=== PATIENT | female | born 1960 | race Caucasian/White ===

== ENCOUNTER 2020-01-02 07:38 | Outpatient (CLI) | payer BC, OTHER, SELFPAY ==
--- NOTE | ~2020-01-02 | DEXA_ITS ---
BMD(1) Young-Adult(2) Age-Matched(3) Region (g/cm2) T-score Z-score WHO Classification L1 1.266 1.0 2.0 Normal L2 1.292 0.7 1.7 Normal L3 1.408 1.5 2.5 Normal L4 1.480 2.0 3.0 Normal L1-L4 1.368 1.4 2.4 Normal Trend: L1-L4 Change vs Change vs Measured Age BMD(1) Baseline Previous Date (years) (g/cm2) (%) (%) 01/02/2020 [age] 1.368 -4.5* -4.5* 12/25/2015 [age] 1.432 baseline - * - Indicates significant change based on 95% confidence interval. 1 - Statistically 68% of repeat scans fall within 1SD (+- 0.010 g/cm2 for AP Spine L1-L4) 2 - [place] (Combined NHANES (ages 20-30) / Tryouts (ages 20-40)) AP Spine Reference Population (v112) 3 - Matched for Age, Weight (females 25-100 kg), Ethnic 11 - World Health Organization - Definition of Osteoporosis and Osteopenia for Women: Normal = T-score at or above -1.0 SD; Osteopenia = T-score between -1.0 and -2.5 SD; Osteoporosis = T-score at or below -2.5 SD; (WHO definitions only apply when a young healthy Women reference database is used to determine T-scores.) Printed: 01/02/2020 8:12:00 AM (13.60)76:3.00:50.00:12.0 0.00:9.90 0.60x1.05 26.3:%Fat=45.3% 0.00:0.00 0.00:0.00 Filename: [id number] Scan Mode: Standard;[place] 37.0 [employer] [id number] BMD(1) Young-Adult(2,7) Age-Matched(3) Region (g/cm2) T-score Z-score WHO Classification Neck Left 0.987 -0.4 0.7 Normal Right 0.968 -0.5 0.6 Normal Mean 0.978 -0.4 0.6 Normal Difference 0.018 -0.1 -0.1 - Total Left 1.050 0.3 1.1 Normal Right 1.028 0.2 0.9 Normal Mean 1.039 0.2 1.0 Normal Difference 0.022 -0.2 -0.2 - Hip [place] Length Comparison (mm) (Right = 106.8 mm) (Mean = 106.7 mm) (Left = 108.7 mm) Trend: Total Mean Change vs Change vs Measured Age BMD(1) Baseline Previous Date (years) (g/cm2) (%) (%) 01/02/2020 59.4 1.039 -3.4* -3.4* 05/04/2012 51.7 1.076 baseline - * - Indicates significant change based on 95% confidence interval. 1 - Statistically 68% of repeat scans fall within 1SD (+- 0.010 g/cm2 for DualFemur Total) 2 - [place] (Combined NHANES (ages 20-30) / Tryouts (ages 20-40)) Femur Reference Population (v112) 3 - Matched for Age, Weight (females 25-100 kg), Ethnic 7 - DualFemur Total T-score difference is 0.2. Asymmetry is None. 11 - World Health Organization - Definition of Osteoporosis and Osteopenia for Women: Normal = T-score at or above -1.0 SD; Osteopenia = T-score between -1.0 and -2.5 SD; Osteoporosis = T-score at or below -2.5 SD; (WHO definitions only apply when a young healthy Women reference database is used to determine T-scores.) Printed: 01/02/2020 8:12:00 AM (13.60); Filename: [id number]; Right Femur; 19.0:%Fat=35.7%; Neck Angle (deg)= 56; Scan Mode: Standard 37.0 uGy; Left Femur; 18.6:%Fat=36.9%; Neck Angle (deg)= 62; Scan Mode: Standard 37.0 uGy [employer] [id number] Dear Alan Redd, Your patient Daisy Grant completed a BMD test on 01/02/2020 using the [employer] DXA System (analysis version: 13.60) manufactured by [employer]. The following summarizes the results of our evaluation. PATIENT BIOGRAPHICAL: Name: Daisy Grant
--- NOTE | ~2020-01-02 | CT_ITS ---
EXAMINATION: CT lung screening EXAM DATE: 01/02/2020 07:59 INDICATION: Personal history of nicotine dependence. TECHNIQUE: Spiral low dose CT of the chest without contrast. Axial, coronal and sagittal images were reviewed. The dose-length product (DLP) for this examination was 110.91 mGy-cm. The exposure was t ailored according to patient size (auto mA exposure control), and iterative reconstruction (ASIR) was used as additional dose reduction technique. There is no prior study for comparison. FINDINGS: There is 5 mm right apical noncalcified nodule. Several other smaller right lung noncalcif ied nodules also indicated. Pleural-based left lower lobe 5 mm nodule in the lateral sulcus. Nodules are likely postinfectious. Mild emphysema and hyperinflation. Tracheobronchial tree is patent. Ther e is no mediastinal, hilar or axillary lymphadenopathy. There are no pleural or pericardial effusio ns. There is no pneumothorax. Heart normal in size. No evidence of coronary arterial calcificat ion. There is small sliding gastroesophageal hiatal hernia. There is thoracic spondylosis without os teoblastic or osteolytic lesions identified. There are cholecystectomy clips. IMPRESSION: Lung-RADS category 2, benign appearance or behavior (<1% chance of malignancy); recommend continued LDCT screening in 1 year. Reviewed, dictated and finalized at location B.
--- NOTE | ~2020-01-02 | MM_ITS ---
EXAMINATION: MM screening anjali BI w brittany HISTORY: Screening mammogram TECHNIQUE: Craniocaudal and mediolateral oblique 3-D tomosynthesis images were obtained and synthetic 2-D images were generated. CAD analysis was submitted and interpreted. COMPARISON: No prior mammogram is available for comparison at this institution. BREAST PARENCHYMAL COMPOSITION: There are scattered areas of fibroglandular density. FINDINGS: There is asymmetry in the mid medial left breast. Diagnostic left mammogram is recommended, with ultrasound if required. Otherwise there is no evidence of suspicious mass, calcification, or architectural distortion to sugg est malignancy in either breast. IMPRESSION: 1. Left breast mammographic asymmetry 2. Diagnostic left mammogram is recommended, with ultrasound if required. BI-RADS Category 0: Incomplete: Needs additional imaging evaluation. Reviewed, dictated and finalized at location A.
== END 2020-01-02 07:39 | disposition home or self-care (01) ==
LOC: CHSIMG 07:41
PROVIDERS: PCP Internal Medicine; Visit Provider Internal Medicine
DX: Z12.2 Encounter for screening for malignant neoplasm of respiratory organs (principal); Z87.891 Personal history of nicotine dependence; Z12.31 Encounter for screening mammogram for malignant neoplasm of breast; M81.0 Age-related osteoporosis without current pathological fracture
CPT/HCPCS: 77063; 77067; 77080; G0297

== ENCOUNTER 2020-01-09 08:56 | Outpatient (CLI) | payer BC, OTHER, SELFPAY ==
--- NOTE | ~2020-01-09 | MMUS_ITS ---
EXAMINATION: MM diagnostic anjali LT w brittany, US breast LT limited HISTORY: Left breast asymmetry on screening mammogram TECHNIQUE: Additional 3-D tomosynthesis images of the left breast were performed and synthetic 2-D im ages were generated. CAD analysis was submitted and interpreted. High resolution limited left breast ultrasound was performed. COMPARISON: 01/02/2020, 12/08/2010, 12/15/2009, 12/02/2009, 05/28/2008 FINDINGS: MAMMOGRAPHIC FINDINGS: The left breast asymmetry on the craniocaudal view demonstrates an appearance similar to prior mammog livier with spot compression. There is no suspicious mass, calcification, or architectural distortion. ULTRASOUND: There is no evidence of focal abnormal solid or cystic lesion in the vicinity of the mammographic fin ding in question. IMPRESSION: 1. No mammographic or sonographic evidence of malignancy. 2. Recommend routine screening mammography in one year. BI-RADS Category 2: Benign finding(s). Reviewed, dictated and finalized at location A. IMPRESSION: 1. No mammographic or sonographic evidence of malignancy. 2. Recommend routine screening mammography in one year. BI-RADS Category 2: Benign finding(s).
== END 2020-01-09 08:57 | disposition home or self-care (01) ==
LOC: CHSIMG 08:59
PROVIDERS: PCP Internal Medicine; Visit Provider Internal Medicine
DX: R92.8 Other abnormal and inconclusive findings on diagnostic imaging of breast (principal)
CPT/HCPCS: 76642; 77061; 77065; G0279

== ENCOUNTER 2022-12-27 08:33 | Outpatient (CLI) | payer BC, SELFPAY ==
--- NOTE | ~2022-12-27 | CT_ITS ---
CT Scan of the Chest without Contrast: Clinical Indication: Lung cancer screening, personal history of nicotine dependence Technique: Contiguous sections were acquired throughout the chest without intravenous contrast. Dose reduction technique was used on this scan by utilizing automated exposure control and iterative recon struction technique. The dose-length product (DLP) was 103.21 mGy-cm. COMPARISON: 01/02/2020 Findings: There is no evidence of any significant mediastinal, hilar or axillary lymphadenopathy. The mediastin al soft tissues appear normal. There is no evidence of pleural or pericardial effusion. Stable right apical nodule, likely scarring. Stable pleural-based nodule the right lower lobe. Stable fissural nodule along the right major fissure. Images through the upper abdomen reveal no abnormalities. Impression: Lung RADS 2: Benign appearance. 12 month follow-up screening CT advised. Reviewed, dictated and finalized at [facility]. Impression: Lung RADS 2: Benign appearance. 12 month follow-up screening CT advised.
--- NOTE | ~2022-12-27 | DEXA_ITS ---
Bone Density Report Name: ZION LARSON Age: 62 Sex: Female Ethnicity: White Date of : 1960 Indication: postmenopausal; screening for osteoporosis; height loss; asthma or emphysema; Referring Provider: Alan Redd Study: Bone densitometry was performed. Exam Date: December 27, 2022 Accession number: [id number] Bone Density: Region BMD T-score Z-score Classification AP Spine(L1, L2, L3) 1.122 0.9 2.6 Normal Femoral Neck (Left) 0.789 -0.5 0.9 Normal Total Hip (Left) 0.974 0.3 1.5 Normal Femoral Neck (Right) 0.788 -0.5 0.9 Normal Total Hip (Right) 0.955 0.1 1.3 Normal Femoral Neck Mean 0.788 -0.5 0.9 Normal Total Hip Mean 0.964 0.2 1.4 Normal World Health Organization criteria for BMD impression classify patients as: Normal (T-score at or above -1.0), Osteopenia (T-score between -1.0 and -2.5), or Osteoporosis (T-score at or below -2.5). 10-year Fracture Risk: FRAX not reported because: All T-scores for Spine Total, Hip Total, Femoral Neck at or above -1.0 Clinical Information Provided by Patient: Has the following medical conditions: Asthma or Emphysema Patient maximum height was 65 Menopause Age: 38 No regular weight bearing exercise Does not regularly consume dairy products Drinks caffeinated beverages Onset of menses at age 14 Number of children 2 Impression: The patient has normal bone mass. Discussion: BONE DENSITY IS ABOVE THE MINIMUM DESIRABLE LEVEL AT ALL SKELETAL SITES TESTED. This patient?s bone mineral density is above the minimum desirable level (T-score -1.0 or better) at all sites measured. The patient should follow a healthful lifestyle (good nutrition with adequate calcium and vitamin D, and appropriate weight-bearing exercise). Follow-Up: Consider repeating this study in 5 years or sooner if there is some new clinical indication. Reported by: Dr. Jayy Whaley on 12/27/2022 9:03:00 AM. Reviewed, dictated and finalized at location [facility]
== END 2022-12-27 08:34 | disposition home or self-care (01) ==
LOC: CHSIMG 08:36
PROVIDERS: PCP Internal Medicine; Visit Provider Internal Medicine
DX: Z12.2 Encounter for screening for malignant neoplasm of respiratory organs (principal); Z87.891 Personal history of nicotine dependence; Z78.0 Asymptomatic menopausal state
CPT/HCPCS: 71271; 77080

== ENCOUNTER 2023-10-04 15:49 | Emergency (ER) | payer BC, SELFPAY ==
[2023-10-04 15:56] VITALS: BP 114/70; PULSE 81; RESP 16; TEMP 36.8; O2SAT 97
--- NOTE | 2023-10-04 16:08 | ED.WOUNDLAC ---
HPI - Wound/Laceration General Chief Complaint: Wound/Laceration Stated Complaint: Bee Sting Time Seen by Provider: 10/04/23 16:08 Source: patient, RN notes reviewed and old records reviewed Mode of arrival: ambulatory Limitations: no limitations History of Present Illness HPI narrative: 63-year-old female to [facility] for complaint of wasps sting to right lateral trunk Two nights ago. Patient states increasing redness, warmth, swelling and pain to area. Patient has attempted to treat at home with Benadryl. Patient endorses similar prior reaction to wasps sting. Patient denies shortness of breath, cough, difficulty swallowing, dizziness, headache, joint pain, myalgias. Patient able to tolerate fluids by mouth. Respirations even and nonlabored. Patient in no acute distress. Related Data Home Medications Medication Instructions Recorded Confirmed albuterol sulfate 90 mcg/actuation 1 inh inhalation Q4H 05/18/22 06/15/22 aerosol inhaler montelukast 10 mg tablet 10 mg PO DAILY 05/18/22 06/15/22 Allergies Allergy/AdvReac Type Severity Reaction Status Date / Time No Known Allergies Allergy Verified 10/04/23 15:57 Review of Systems Review of Systems: All systems reviewed & are unremarkable except as noted in HPI and below Constitutional: Constitutional: Reports no additional constitutional complaints Eyes: Eyes: Reports no additional eye complaints ENT: Reports system reviewed and no additional complaints, except as documented Cardiovascular: Cardiovascular: Reports no additional cardiovascular complaints, Denies chest pain and Denies dyspnea Respiratory: Respiratory: Reports no additional respiratory complaints, Denies cough and Denies dyspnea Musculoskeletal: Musculoskeletal: Reports no additional musculoskeletal complaints Integumentary/Breasts: Skin/Breast: Reports as per HPI, Reports pruritus, Reports erythema, Reports skin pain and Reports skin swelling Comments: Right lateral trunk; patient endorses wasp sting Neurologic: Reports system reviewed and no additional complaints, except as documented Psychiatric: Psychiatric: Reports no additional psychiatric complaints PMFSH Past Medical History Medical History Asthma COPD (chronic obstructive pulmonary disease) GERD (gastroesophageal reflux disease) Surgical History Surgical History H/O tubal ligation History of cholecystectomy S/P ovarian cystectomy Family History Family History Other Heart disease Social History Social History Smoking status: Never smoker Smoking end date: 04/10/11 Alcohol intake: current Substance use: never Substance use type: does not use Lack of Transportation: No Lack of Food: Never True Current Housing: I Have Housing Concerned About Future Housing: No Difficulty Paying Gas/Electric Bills: No Difficulty Paying for Meds: No Currently Unemployed: No Education: Trade/Vocational Certificate Difficulty w/ Childcare or Family Care: No Comments At the time of my signature, I reviewed and agree with the nursing past medical, surgical, social, and family history. There is no relevant family history pertinent to the patient complaint. Exam Const: General: cooperative, healthy appearing, no acute distress, alert, uncomfortable and well nourished Nutritional Appearance: well nourished Orientation/consciousness: patient oriented x3 Limitations: no limitations HENMT: Head: normal to inspection Ears: external ears normal Face/Nose/Sinus: Normal external nose present, Normal nares present, normal facial exam, No erythema and No edema Face and sinus: normal facial exam, no erythema and no edema Mouth: Yes Normal oral and palatal mucosa presen
[2023-10-04] MEDS: methylPREDNISolone ACETATE 40 MG/ML VIAL IM (17:00)
== END 2023-10-04 17:15 | disposition home or self-care (01) ==
PROVIDERS: Emergency Provider Nurse Practitioner Family; PCP Internal Medicine
DX: J44.9 Chronic obstructive pulmonary disease, unspecified (principal); K21.9 Gastro-esophageal reflux disease without esophagitis
CPT/HCPCS: 96372; 99213; G0463; J1010

== ENCOUNTER 2023-10-13 14:39 | Outpatient (CLI) | payer BC, SELFPAY ==
--- NOTE | ~2023-10-13 | CT_ITS ---
EXAMINATION: CT abdomen pelvis w con DATE: 10/13/2023 15:39 INDICATION: Right lower quadrant abdominal pain. Nausea. TECHNIQUE: Computed tomography (CT) of the abdomen and pelvis was performed with 100 mL Omnipaque 350 intravenous contrast. Automated exposure control and iterative reconstruction technique were employe d. The dose-length product was 514.01 mGy-cm. COMPARISON: Chest CT 12/27/2022 FINDINGS: The visualized portions of the lung bases demonstrate minimal atelectasis. There is a stabl e 6 mm nodule in left lower lobe, likely benign. No pleural effusion. The heart size is normal. No pe ricardial effusion. There is a small sliding hiatal hernia. The liver is normal. There are changes of cholecystectomy. The spleen, pancreas, adrenal glands, and kidneys are normal. There are no dilated loops of bowel. There is diverticulosis of the colon without evidence of diverticulitis. The appendix is normal. There are no pathologically enlarged lymph nodes. There is no free intraperitoneal fluid. There is severe lumbar spondylosis and moderate thoracic spondylosis. IMPRESSION: 1. Small sliding hiatal hernia. Reviewed, dictated and finalized at location A.
[2023-10-13 14:55] LABS: Hematocrit 46.3 % (35.0-42.0); Hemoglobin 14.9 g/dL (11.7-13.8); Mean Corpuscular HGB Conc 32.2 g/dL (32-36); Mean Corpuscular Hemoglobin 32.2 pg (27.0-31.0); Mean Platelet Volume 10.8 fl (9.2-11.8); Platelet Count Result 290 K/mm3 (150-420); Red Blood Count 4.63 M/mm3 (4.20-5.40); Red Cell Distribution Width 12.7 % (11.6-14.4); White Blood Count 9.5 K/mm3 (4.8-10.8)
[2023-10-13 15:09] LABS: Alanine Aminotransferase 44 U/L (14-59); Albumin Level 3.7 g/dL (3.4-5.0); Alkaline Phosphatase 149 U/L (46-116); Amylase 64 U/L (25-115); Anion Gap 9 mmol/L (4-12); Aspartate Amino Transferase 29 U/L (15-37); Bilirubin,Total 0.7 mg/dL (0.00-1.00); Blood Urea Nitrogen 18 mg/dL (7-18); Calcium 9.2 mg/dL (8.5-10.1); Carbon Dioxide 31 mmol/L (21-32); Chloride 104 mmol/L (98-108); Estimated Glomerular Filt Rate 48; Glucose 90 mg/dL (70-99); Lipase 45 U/L (16-77); Osmolality Calculated 299 mOsm/kg (285-295); Potassium 3.9 mmol/L (3.5-5.1); Sodium 144 mmol/L (136-145); Total Protein 7.9 g/dL (6.4-8.2)
[2023-10-13 15:13] LABS: Appearance Urine Clear (Clear); Bilirubin Urine Negative (Negative); Blood Urine Negative (Negative); Color Urine Yellow (Yellow); Glucose Urine UA Negative (Negative); Ketones Urine Negative (Negative); Leukocyte Esterase Ur Trace (Negative); Nitrate Urine Negative (Negative); Protein Urine Negative (Negative); Specific Grav Ur 1.025 (1.010-1.020); Urobilinogen Urine 0.2 mg/dL (0.2-1.0)
[2023-10-13 15:27] LABS: Add Urine Microscopic? YES; Bacteria Urine None seen /hpf; RBC Urine None seen /hpf (0-2); Squamous Epithelial Cell Urine Many /hpf (Few); WBC Urine 0-3 /hpf (0-3)
== END 2023-10-13 14:40 | disposition home or self-care (01) ==
LOC: CHSLAB 14:41
PROVIDERS: PCP Internal Medicine; Visit Provider Internal Medicine
DX: R10.31 Right lower quadrant pain (principal); R11.0 Nausea; K44.9 Diaphragmatic hernia without obstruction or gangrene
CPT/HCPCS: 36415; 74177; 80053; 81001; 82150; 83690; 85027; Q9967